=== PATIENT | female | born 1980 | race American Indian/Alaskan Native ===

== ENCOUNTER 2016-07-21 22:48 | Emergency (ER) | payer SELFPAY ==
[2016-07-22] MEDS ORDERED: NORCO 5/325 PO ONE (05:30)
--- NOTE | 2016-07-22 05:31 | Emergency Department Report ---
ED General Adult HPI - General Chief complaint: Dental/Oral Stated complaint: BROKE FRONT TOOTH IN HALF Time Seen by Provider: 07/22/16 05:26 Source: patient Mode of arrival: Ambulatory Limitations: No Limitations - History of Present Illness Initial comments: This is a 35-year-old female. She is previously unknown to me. She is not . She presents to the ER with a fractured tooth. The tooth is approximately tooth #9/10. She has a number of teeth which are missing. She reports she is following up with a dentist in a week to have her teeth removed and to have a plate installed. She reports that she is not . She has no headache, neck pain, chest pain, abdominal pain or shortness of breath. She has no other complaints at this time. She reports she can tolerate clindamycin and [place]. pain is sharp, increases with palpation, percussion. Decreases with rest. No other symptoms. No other complaints. There is no stridor or dysphonia. She is speaking in full sentences. She is protecting her airway. She is tolerating liquid feeds. On physical exam, she is noted to have a partially fractured tooth, #9/10. She will be treated with [place]. I don't believe she requires antibiotic therapy at this time, she will be discharged with chlorhexidine mouthwash, [place] therapy. She is instructed to follow-up with her outpatient dentist. Return precautions were extensively reviewed. There is no stridor, dysphonia, trismus or malocclusion. -: Sudden Location: mouth Quality: aching Consistency: constant Improves with: medication Associated Symptoms: denies other symptoms - Related Data Previous Rx's Medication Instructions Recorded Last Taken Type Chlorhexidine Mouthwash [Peridex] 15 ml MM BID #1 bottle 07/22/16 Unknown Rx HYDROcodone/APAP 5-325 [[place] 1 each PO Q6HR PRN #8 tablet 07/22/16 Unknown Rx 5/325] Allergies Allergy/AdvReac Type Severity Reaction Status Date / Time amoxicillin Allergy Hives Verified 07/21/16 23:57 ketorolac tromethamine Allergy Hives Verified 07/21/16 23:57 [From Toradol] Penicillins Allergy Hives Verified 07/21/16 23:57 tramadol Allergy Hives Verified 07/21/16 23:57 ED Review of Systems ROS: Stated complaint: BROKE FRONT TOOTH IN HALF Other details as noted in HPI Constitutional: denies: fever, malaise Eyes: denies: vision change ENT: dental pain Respiratory: denies: cough Cardiovascular: denies: chest pain Gastrointestinal: denies: abdominal pain Genitourinary: as per HPI Musculoskeletal: as per HPI Skin: as per HPI Neurological: as per HPI Psychiatric: as per HPI ED Past Medical Hx - Past Medical History Previous Medical History?: Yes Additional medical history: Anemia, Gastritis - Surgical History Past Surgical History?: No - Social History Smoking Status: Former Smoker Substance Use Type: None - Medications Home Medications: Home Medications Medication Instructions Recorded Confirmed Last Taken Type Chlorhexidine Mouthwash [Peridex] 15 ml MM BID #1 bottle 07/22/16 Unknown Rx HYDROcodone/APAP 5-325 [[place] 1 each PO Q6HR PRN #8 tablet 07/22/16 Unknown Rx 5/325] ED Physical Exam - General Limitations: No Limitations General appearance: alert, in no apparent distress - Head Head exam: Present: atraumatic, normocephalic - Eye Eye exam: Present: normal appearance, PERRL, EOMI. Absent: nystagmus - ENT ENT exam: Present: normal orophraynx, TM's normal bilaterally, normal external ear exam, other (patient has poor dentition. On tooth #9/10, there is a slight anterior fracture. There is no gingival swelling, there is no pus, there is no fluctuance.) - Neck Neck exam: Present: normal inspection, full ROM. Absent: tenderness, meningismus - Respiratory Respiratory exam: Present: normal lung sounds bilaterally. Absent: respiratory distress, wheezes, rales, rhonchi, stridor, chest wall tenderness, accessory muscle use, decreased breath sounds, prolonged expiratory - Cardiovascular Cardiovascular Exam: Present: regular rate, normal rhythm, normal heart sounds. Absent: bradycardia, tachycardia, irregular rhythm, systolic murmur, diastolic murmur, rubs, gallop - GI/Abdominal GI/Abdominal exam: Present: soft, normal bowel sounds. Absent: distended, tenderness, guarding, rebound, rigid, hyperactive bowel sounds, hypoactive bowel sounds, organomegaly, mass, bruit, pulsatile mass - Extremities Exam Extremities exam: Present: normal inspection, full ROM, normal capillary refill. Absent: tenderness, pedal edema, joint swelling, calf tenderness - Back Exam Back exam: Present: normal inspection, full ROM. Absent: tenderness, CVA tenderness (R), CVA tenderness (L), muscle spasm, paraspinal tenderness, vertebral tenderness - Neurological Exam Neurological exam: Present: alert, oriented X3, normal gait, other (Extraocular movements intact. Tongue midline. No facial droop. Facial sensation intact to light touch in the V1, V2, V3 distribution bilaterally. 5 and 5 strength in 4 extremities.. Sensation is intact to light touch in 4 extremities.). Absent : motor sensory deficit - Psychiatric Psychiatric exam: Present: normal affect, normal mood - Skin Skin exam: Present: warm, dry, intact, normal color. Absent: rash ED Course Vital Signs 07/21/16 07/22/16 07/22/16 23:58 05:59 06:00 Temperature 98.3 F Pulse Rate 76 67 Respiratory 18 18 16 Rate Blood Pressure 118/84 Blood Pressure 126/77 [Right] O2 Sat by Pulse 100 Oximetry ED Medical Decision Making - Lab Data Vital Signs 07/21/16 23:58 Temperature 98.3 F Pulse Rate 76 Respiratory 18 Rate Blood Pressure 118/84 O2 Sat by Pulse 100 Oximetry Critical care attestation.: If time is entered above; I have spent that time in minutes in the direct care of this critically ill patient, excluding procedure time. ED Disposition Clinical Impression: Dentalgia Disposition: DISCHARGED TO HOME OR SELFCARE Is pt being admited?: No Does the pt Need Aspirin: No Condition: Stable Instructions: Acute dental trauma (ED) Additional Instructions: Take the pain medication and antibiotic mouthwash as directed. follow up with a dentist within the next week. Return to the ER right away with fevers or chills, chest pain or shortness of breath, intractable nausea or vomiting, inability to tolerate liquid feeds. Prescriptions: Chlorhexidine Mouthwash [Peridex] 15 ml MM BID #1 bottle HYDROcodone/APAP 5-325 [[place] 5/325] 1 each PO Q6HR PRN #8 tablet PRN Reason: Pain Referrals: PRIMARY CARE,MD [Primary Care Provider] - 3-5 Days [facility] [Outside] - 3-5 Days [facility] [place] [Outside] - 3-5 Days
[2016-07-22 06:01] VITALS: BP 126/77
== END 2016-07-22 06:10 | disposition home or self-care (01) ==
LOC: ED 22:48
DX: K08.89 Other specified disorders of teeth and supporting structures (principal); D64.9 Anemia, unspecified; Z88.0 Allergy status to penicillin; Z88.1 Allergy status to other antibiotic agents; Z88.8 Allergy status to other drugs, medicaments and biological substances
CPT/HCPCS: 99282